=== PATIENT | female | born 1995 | race Two or more races ===

== ENCOUNTER 2019-12-08 16:24 | Emergency (ER) | payer MEDICAID, OTHER ==
[~2019-12-08] VITALS: Ht 165.1 cm; Wt 80.7 kg
[2019-12-08 17:10] VITALS: BP 140/91
[2019-12-08] MEDS ORDERED: IBUPROFEN 800 MG TAB PO ONE (17:30)
== END 2019-12-08 17:55 | disposition home or self-care (01) ==
LOC: ER 16:24 → EDBD 16:24 → ER 17:55
DX: S46.912A Strain of unspecified muscle, fascia and tendon at shoulder and upper arm level, left arm, initial encounter (principal); V43.62XA Car passenger injured in collision with other type car in traffic accident, initial encounter; Y93.89 Activity, other specified; Y92.488 Other paved roadways as the place of occurrence of the external cause; Y99.8 Other external cause status

== ENCOUNTER 2020-08-31 10:43 | Emergency (ER) | payer MEDICAID, OTHER ==
[~2020-08-31] VITALS: Ht 165.1 cm; Wt 79.4 kg
[2020-08-31 10:48] VITALS: BP 126/82
[2020-08-31] MEDS ORDERED: ACETAMINOPHEN 325 MG TAB PO ONE (12:00)
== END 2020-08-31 14:34 | disposition home or self-care (01) ==
LOC: ER 10:43
DX: N28.1 Cyst of kidney, acquired (principal)
CPT/HCPCS: 74176; 81002; 81025